=== PATIENT | female | born 1980 | race Two or more races ===

== ENCOUNTER 2020-07-25 11:47 | Emergency (ER) | payer MEDICAID, SELFPAY ==
--- NOTE | 2020-07-25 | ECG_ITS ---
Test Reason : LEFT ARM PAIN Blood Pressure : / mmHG Vent. Rate : 074 BPM Atrial Rate : 074 BPM P-R Int : 126 ms QRS Dur : 080 ms QT Int : 386 ms P-R-T Axes : 063 029 021 degrees QTc Int : 428 ms Normal sinus rhythm with sinus arrhythmia Normal ECG When compared with ECG of 18-OCT-2016 02:14, Vent. rate has decreased BY 45 BPM Referred By: Generic ED Physician Electronically Signed By:HALIMA SWAIN
--- NOTE | ~2020-07-25 | XR_ITS ---
EXAMINATION: XR CHEST CLINICAL INFORMATION: Chest pain and left arm pain COMPARISON: Previous chest x-ray April 2013 TECHNIQUE: 2 views of the chest were obtained. FINDINGS: No significant abnormality is noted involving the heart, lungs, mediastinum, bony thorax or soft tissues. XR/XR chest 2V IMPRESSION: Unremarkable examination.
[2020-07-25 11:57] VITALS: BP 191/92; RESP 16; TEMP 36.3; O2SAT 100; BMI 23.8
[2020-07-25 13:07] VITALS: BP 157/92; PULSE 72; RESP 16; TEMP 36.9; O2SAT 100
--- NOTE | 2020-07-25 13:23 | PC.NURSE ---
patient a&ox3, c/o headache at this time- denies lt arm pain/chest pain, denies n/v, vitals stable, will continue to monitor.
--- NOTE | 2020-07-25 14:03 | PC.NURSE ---
iv inserted, labs drawn, ekg performed, vss, will continue to monitor.
[2020-07-25 14:05] LABS: MANUAL DIFF FLAG NO
[2020-07-25 14:09] LABS: Basophils Absolute Auto 0.1 X10*3/uL (0.0-0.2); Basophils Percent Auto 0.6 % (0-2); Eosinophils Absolute Auto 0.2 X10*3/uL (0.0-0.4); Eosinophils Percent Auto 1.8 % (0-4); Hematocrit 40.4 % (37-47); Hemoglobin 13.5 g/dl (12.0-16.0); Imm Gran Abs Auto 0.03 X10*3/uL (0.00-0.03); Imm Gran Pct Auto 0.3 % (0.0-0.4); Lymphocytes Absolute Auto 1.4 X10*3/uL (1.2-4.9); Mean Corpuscular HGB Conc 33.4 g/dl (31.0-35.0); Mean Corpuscular Hemoglobin 29.2 pg (27.0-33.0); Mean Corpuscular Volume 87.3 fL (80-98); Mean Platelet Volume 9.7 fL (9.4-12.3); Monocytes Absolute Auto 0.6 X10*3/uL (0.1-1.2); Neutrophils Absolute Auto 6.5 X10*3/uL (2.0-8.3); Neutrophils Percent Auto 74.3 % (45-73); Platelet Count 302 X10*3/uL (160-400); Red Blood Count 4.63 X10*6/uL (4.20-5.50); Red Cell Distribution Width 12.2 % (11.0-16.0); White Blood Count 8.7 X10*3/uL (4.8-10.8)
[2020-07-25 14:31] LABS: Anion Gap 12 (12-20); Blood Urea Nitrogen 11 mg/dL (9-16); Calcium 8.7 mg/dL (8.4-10.2); Carbon Dioxide 26 mmol/L (22-29); Chloride 104 mmol/L (96-108); Creatinine Clr Calc Pharmacy 78.8; Estimated Glomerular Filt Rate > 60; Glucose Random 90 mg/dL (60-115); Sodium 138 mmol/L (135-145)
[2020-07-25 14:38] LABS: Troponin-I High Sensitivity < 3.5 ng/L (<3.5-17.0)
--- NOTE | 2020-07-25 15:21 | ED.GENADULT ---
HPI - General Adult General Chief complaint: General Medical Stated complaint: high blood pressure Time Seen by Provider: 07/25/20 13:58 Source: patient Mode of arrival: ambulatory Limitations: language barrier (German-speaking) History of Present Illness HPI narrative: 40-year-old female with a past medical history of anxiety presenting to the ED with complaints of elevated blood pressure over the past few months with associated intermittent chest pain and left arm pain although reports she does not have the chest pain or left arm pain at this time although is concerned due to her blood pressure being elevated anywhere from 140s through 190s for systolic blood pressure. She reports in May when she was at [facility] for her daughter she had them take her blood pressure due to she was having the left arm pain and the chest pain and they instructed her to come to the emergency department although she refused and has been ignoring it. Denies any dizziness, changes in vision, jaw pain, nausea/vomiting, palpitations, dyspnea on exertion, orthopnea, shortness of breath, back pain, symptoms or any other symptoms complaints or concerns at this time. MD complaint: Elevated BP with left arm pain and chest pain Related Data Allergies Allergy/AdvReac Type Severity Reaction Status Date / Time No Known Allergies Allergy Unverified 03/01/20 17:34 Review of Systems Review of Systems: Constitutional : No Weight loss, No Fever, No Chills, No Night Sweats, No Fatigue, No Malaise ENT/Mouth : No Hearing loss, No Ear Pain, No Nasal Congestion, No Sinus Pain, No Hoarseness, No sore throat, No Rhinorrhea, No Swallowing Difficulty Eyes: No Eye Pain, No Swelling, No Redness, No Foreign Body, No Discharge, No Vision Changes Cardiovascular : + Resolved Chest Pain, No SOB, no Dyspnea on Exertion, No Orthopnea, No edema, No extremity swelling, No Palpitations Respiratory : No Cough, No Sputum, No Wheezing, No Dyspnea Gastrointestinal : No Nausea, No Vomiting, No Diarrhea, No abdominal Pain, No Hematochezia, No Melena Genitourinary : No irregular bleeding, No Dysuria, No Urinary Frequency, No Hematuria, No Urinary Incontinence, No Urgency, No Flank Pain, No Urinary Flow Changes, No Hesitancy Musculoskeletal : + resolved left arm pain, No joint pain, No Myalgias, No Joint Swelling Skin : No Skin Lesions, No rash Neuro : No Weakness, No Numbness, No Paresthesias, No Loss of Consciousness, No Dizziness, No Headache Psych : No Anxiety/Panic, No Depression, No SI/HI/AH/VH Heme/Lymph: No Bruising, No Bleeding,No Lymphadenopathy Endocrine : No Polyuria, No Polydipsia, No Temperature Intolerance Yes all other systems are reviewed and are negative [facility] Past Medical History Attestation statement: The following information was validated with the patient. Medical History (Updated 07/25/20 @ 15:31 by NATALIE Forbes) Anxiety Social History Social History Alcohol intake: current Alcohol intake frequency: holidays/special occasions only Smoked in Last 30 Days: No Use of substances other than those prescribed or required for medical reasons: No Advance Directives: Yes Advance Directives Information Provided: Yes Advance Directives on File: No Physical Exam Vital Signs: Vital Signs: Last Vital Signs Temp 98.5 F 07/25/20 13:07 Pulse 72 07/25/20 13:07 Resp 16 07/25/20 13:07 BP 157/92 H 07/25/20 13:07 Pulse Ox 100 07/25/20 13:07 Body Mass Index 23.8 vital signs have been reviewed as normal and appeared to be correct. Blood pressure normal. Heart rate normal. Respiration rate normal. Temperature normal. Oxygen saturation normal. Appearance: Alert. Oriented X3. No acute distress. Head: Normal external exam. Normocephalic. Atraumatic. No Aguilar signs noted. No raccoon eyes noted Eyes: PERRLA. EOMI. Conjunctiva and sclera normal. Eyelids normal. ENT: EAC normal. TM's Normal. Pharynx normal. Uvula midline. Moist mucous membranes. No trismus noted. No drooling noted. No muffled voice noted. Neck: Normal inspection. Neck supple. FROM. No adenopathy. Thyroid Normal. No meningeal signs. No neck mass noted. CVS: Normal heart rate and rhythm. Heart sound normal. No murmurs noted. Pulses normal throughout. Respiratory: No respiratory distress. Painless inspiration. Breath sounds normal. No wheezes/rales/rhonchi noted. Chest nontender. No accessory muscle usage noted or decreased air movement noted. Abdomen: Soft and nontender. Bowel sounds normal in all 4 quadrants. No distention noted. No organomegaly noted. No visible injury noted. Back: No CVA tenderness. Full range of motion noted. Skin: Skin warm and dry. Normal skin color. Normal skin turgor. No rashes/lesions/lacerations noted. Extremities: No lower extremity edema. Extremities exhibit normal range of motion. Extremities nontender. Neuro: Oriented X 3. No motor deficit. No sensory deficit. Reflexes normal. Course Course Course Narrative: 40-year-old with a past medical history of anxiety presenting to the ED with elevated blood pressure for the past few months and intermittent left arm pain and chest pain which is not present today. Denies any other symptoms complaints or concerns at this time. - on exam patient is alert and oriented x3. Not in any acute distress. Initially the patient's blood pressure was 191/92 although once she was able to calm down her blood pressure is now at 157/92. Otherwise she is noted to be tachycardic at 125 and 113 and all other vitals are within normal limits. - concern for ACS vs hypertension - labs obtained and all within normal limits including troponin. - EKG is normal sinus rhythm with sinus arrhythmia normal MI/QRS/QTC/QTC interval. No acute ischemic changes noted. Similar when compared to prior EKG 10/18/2016. - chest x-ray within normal limits. - will DC home with instructions to follow-up with her primary care provider for further evaluation treatment and recheck of the patient's blood pressure for possible starting hypertensive medications and instructions to return if any new or worsening symptoms. Patient understands agrees the plan. Medical Decision Making Medical Records Medical records reviewed: Yes I reviewed the patient's medical records. Lab Data Lab results reviewed: Yes I reviewed the patient's lab results. Result diagrams: 07/25/20 14:00 07/25/20 14:00 Labs: Lab Results 07/25/20 07/25/20 07/25/20 Range/Units 14:00 14:00 14:00 WBC 8.7 (4.8-10.8) X10*3/uL RBC 4.63 (4.20-5.50) X10*6/uL Hgb 13.5 (12.0-16.0) g/dl Hct 40.4 (37-47) % MCV 87.3 (80-98) fL MCH 29.2 (27.0-33.0) pg MCHC 33.4 (31.0-35.0) g/dl RDW 12.2 (11.0-16.0) % Plt Count 302 (160-400) X10*3/uL MPV 9.7 (9.4-12.3) fL Immature Gran % (Auto) 0.3 (0.0-0.4) % Neut % (Auto) 74.3 H (45-73) % Lymph % (Auto) 16.0 L (20-40) % [place] % (Auto) 7.0 (2-11) % Eos % (Auto) 1.8 (0-4) % Baso % (Auto) 0.6 (0-2) % Lymph # (Auto) 1.4 (1.2-4.9) X10*3/uL [place] # (Auto) 0.6 (0.1-1.2) X10*3/uL Eos # (Auto) 0.2 (0.0-0.4) X10*3/uL Baso # (Auto) 0.1 (0.0-0.2) X10*3/uL Abs Immat Gran (auto) 0.03 (0.00-0.03) X10*3/uL Absolute Neuts (auto) 6.5 (2.0-8.3) X10*3/uL Absolute Nucleated RBC 0.000 (0.0-0.012) X10*3/uL Nucleated RBC % (auto) 0.0 (0.0-0.2) /100WBC Hold Blue Top SEE NOTE Sodium 138 (135-145) mmol/L Potassium 4.0 (3.3-5.1) mmol/L Chloride 104 (96-108) mmol/L Carbon Dioxide 26 (22-29) mmol/L Anion Gap 12 (12-20) BUN 11 (9-16) mg/dL Creatinine 0.75 (0.5-1.4) mg/dL Estim Creat Clear Calc 78.8 Estimated GFR > 60 Random Glucose 90 (60-115) mg/dL Calcium 8.7 (8.4-10.2) mg/dL Troponin I High Sens (<3.5-17.0) ng/L 07/25/20 Range/Units 14:00 WBC (4.8-10.8) X10*3/uL RBC (4.20-5.50) X10*6/uL Hgb (12.0-16.0) g/dl Hct (37-47) % MCV (80-98) fL MCH (27.0-33.0) pg MCHC (31.0-35.0) g/dl RDW (11.0-16.0) % Plt Count (160-400) X10*3/uL MPV (9.4-12.3) fL Immature Gran % (Auto) (0.0-0.4) % Neut % (Auto) (45-73) % Lymph % (Auto) (20-40) % [place] % (Auto) (2-11) % Eos % (Auto) (0-4) % Baso % (Auto) (0-2) % Lymph # (Auto) (1.2-4.9) X10*3/uL [place] # (Auto) (0.1-1.2) X10*3/uL Eos # (Auto) (0.0-0.4) X10*3/uL Baso # (Auto) (0.0-0.2) X10*3/uL Abs Immat Gran (auto) (0.00-0.03) X10*3/uL Absolute Neuts (auto) (2.0-8.3) X10*3/uL Absolute Nucleated RBC (0.0-0.012) X10*3/uL Nucleated RBC % (auto) (0.0-0.2) /100WBC Hold Blue Top Sodium (135-145) mmol/L Potassium (3.3-5.1) mmol/L Chloride (96-108) mmol/L Carbon Dioxide (22-29) mmol/L Anion Gap (12-20) BUN (9-16) mg/dL Creatinine (0.5-1.4) mg/dL Estim Creat Clear Calc Estimated GFR Random Glucose (60-115) mg/dL Calcium (8.4-10.2) mg/dL Troponin I High Sens < 3.5 (<3.5-17.0) ng/L Imaging Data Chest x-ray: Attestation: I personally reviewed and interpreted this imaging study as follows: Radiologist's impression: FINDINGS: No significant abnormality is noted involving the heart, lungs, mediastinum, bony thorax or soft tissues. XR/XR chest 2V IMPRESSION: Unremarkable examination. ECG Data Attestation: I personally reviewed and interpreted this ECG as follows: Interpretation: EKG is normal sinus rhythm with sinus arrhythmia normal MI/QRS/QTC/QTC interval. No acute ischemic changes noted. Similar when compared to prior EKG 10/18/2016. Scores Heart Score History: -0- slightly suspicious ECG: -0- normal Age: -0- < or = 45 Risk factory: -0- no risk factors known Troponin: -0- < or = normal limit Score: 0 Risk: 1.7% Discharge Plan Discharge Clinical Impression: Hypertension Qualifiers: Hypertension type: unspecified Qualified Code(s): I10 - Essential (primary) hypertension Patient Disposition: Home, Self-Care Instructions: Hypertension (ED) Referrals: Guilherme Thomas MD [Primary Care Provider] - 2 days (Call tomorrow to make a follow-up appointment this week. Llame ma?chad para hacer jordan jay de seguimiento esta semana) Print Language: German
[2020-07-25 16:06] VITALS: BP 164/92; PULSE 66; RESP 14; TEMP 36.9; O2SAT 100
== END 2020-07-25 16:07 | disposition home or self-care (01) ==
PROVIDERS: Emergency Provider Emergency Medicine Emergency Medical Services; PCP Internal Medicine
DX: I10 Essential (primary) hypertension (principal); R07.9 Chest pain, unspecified; F41.9 Anxiety disorder, unspecified
CPT/HCPCS: 36415; 71046; 80048; 84484; 85025; 93005; 99283; 99284

== ENCOUNTER 2021-05-03 09:09 | Outpatient (REF) | payer MEDICAID, SELFPAY ==
--- NOTE | ~2021-05-03 | CT_ITS ---
EXAMINATION: CT ABDOMEN AND PELVIS WITHOUT AND WITH CONTRAST CLINICAL INFORMATION: Microscopic hematuria COMPARISON: None. TECHNIQUE: Noncontrast CT of the abdomen and pelvis is performed followed by split bolus contrast-enhanced images using 85 mL Omnipaque 350 contrast.? Postcontrast imaging is performed during the combined nephrogram and excretion phase. Sagittal and coronal reformatted images were obtained on the technologist's workstation for both the precontrast and postcontrast phases. This CT examination was performed using dose optimization techniques as appropriate, variously including the following: *Automated exposure control *Adjustment of mA and/or kV according to patient size (this includes techniques or standardized protocols for targeted exams where dose is matched to indication/reason for exam; i.e. extremities or head) *Use of iterative reconstruction technique DLP: mGy-cm FINDINGS: LUNG BASES: The visualized lung bases are unremarkable. LIVER, GALLBLADDER, AND BILIARY TREE: The liver is normal in size, shape, and attenuation. No focal hepatic lesion or biliary ductal dilatation is present. The gallbladder is unremarkable with no evidence of radiopaque gallstones, gallbladder wall thickening, or obvious pericholecystic inflammatory changes. PANCREAS: Unremarkable. SPLEEN: Unremarkable. ADRENAL GLANDS: Unremarkable. KIDNEYS AND URETERS: The kidneys are normal in size, shape, and attenuation. No hydronephrosis, hydroureter, or calculi seen. There is a small 1 cm low-attenuation lesion in the lower pole the left kidney consistent with a cyst. No imaging follow-up needed. The collecting systems are normal. The ureters are normal BLADDER: Unremarkable. GASTROINTESTINAL TRACT: The small and large bowel are unremarkable. The appendix is unremarkable. ABDOMINAL WALL: There is a small umbilical hernia containing fat. LYMPH NODES: Normal. VASCULAR: Unremarkable. PELVIC VISCERA: Unremarkable. OSSEUS STRUCTURES: Unremarkable. CT/CT urogram IMPRESSION: Small left renal cyst. Otherwise unremarkable exam. No cause of hematuria seen.
[2021-05-03] MEDS: iohexoL 350 MG/ML 100 ML INFUS..BTL IV (10:51)
== END 2021-05-03 09:10 | disposition home or self-care (01) ==
LOC: HO.CT 09:09
PROVIDERS: PCP Internal Medicine; Visit Provider Internal Medicine
DX: R31.21 Asymptomatic microscopic hematuria (principal)
CPT/HCPCS: 74178; Q9967

== ENCOUNTER 2021-11-24 12:00 | Emergency (ER) | payer MEDICAID, SELFPAY ==
[2021-11-24 12:20] VITALS: BP 138/79; PULSE 75; RESP 16; TEMP 36.7; O2SAT 97; BMI 25.6
--- NOTE | 2021-11-24 12:40 | ED.GENADULT ---
HPI - General Adult General Chief complaint: Extremity Injury, Lower Stated complaint: leg pain Time Seen by Provider: 11/24/21 12:40 Source: patient and spanish interpreter Mode of arrival: ambulatory Limitations: language barrier History of Present Illness HPI narrative: Patient is a 41 year old female presenting to the emergency department today with left foot pain. Patient states that starting yesterday, she began to have pain in the bottom part of her left foot. Patient states that she did not step on anything and the pain is when she takes steps. Patient denies any dizziness, lightheadedness, abdominal pain, nausea, vomiting, fever, chills, blurry vision, double vision, loss of vision, chest pain, difficulty breathing, shortness of breath, back pain, night sweats, pain with urination, increased urinary frequency, increased urinary urgency, blood in her urine or stool, syncope or a near syncopal episode, recent trauma or falls, bowel incontinence, bladder incontinence, bowel retention, bladder retention, or any other complaints at this time. Onset (ago): day(s) Location: left and lower extremity Radiation: non-radiation Severity: mild Severity scale (1-10): 2 Quality: dull Pain Consistency: intermittent Relieving factors: none Exacerbating factors: movement Associated symptoms: denies other symptoms Treatments prior to arrival: none Related Data Allergies Allergy/AdvReac Type Severity Reaction Status Date / Time No Known Allergies Allergy Unverified 03/01/20 17:34 Review of Systems Constitutional: Constitutional: Reports no additional constitutional complaints, Denies chills, Denies fever(s) and Denies night sweats Eyes: Eyes: Reports no additional eye complaints, Denies blurry vision, Denies change in vision, Denies diplopia, Denies eye discharge, Denies loss of vision and Denies eye pain ENT: Denies dizziness Cardiovascular: Cardiovascular: Reports no additional cardiovascular complaints, Denies chest pain, Denies lightheadedness, Denies Loss of Consciousness and Denies dyspnea Respiratory: Respiratory: Reports no additional respiratory complaints and Denies dyspnea Gastrointestinal: Gastrointestinal: Reports no additional gastrointestinal complaints, Denies abdominal pain, Denies melena, Denies hematochezia, Denies change in bowel habits and Denies change in stool character Genitourinary: Genitourinary: Denies hematuria, Denies urinary frequency, Denies dysuria, Denies urinary incontinence, Denies urinary hesitancy and Denies urinary urgency Musculoskeletal: Musculoskeletal: Reports no additional musculoskeletal complaints, Denies numbness and Denies tingling Comments: left foot pain Neurologic: Denies dizziness, Denies loss of vision, Denies numbness and Denies tingling Psychiatric: Psychiatric: Reports no additional psychiatric complaints Endocrine: Endocrine: Reports no additional endocrine complaints Hematologic/Lymphatic: Hematologic/Lymphatic: Reports no additional hematologic/lymphatic complaints Allergic/Immunologic: Allergic/Immunologic: Reports no additional allergic/immunologic complaints [facility] Past Medical History Attestation statement: The following information was validated with the patient. Source: old records reviewed Medical History Anxiety Social History Social History Alcohol intake: current Alcohol intake frequency: holidays/special occasions only Advance Directives: No Advance Directives Information Provided: No Physical Exam ED Vital Signs: Vital Signs - 24 hr 11/24/21 12:20 Temperature 98.0 F Pulse Rate 75 Respiratory Rate 16 Blood Pressure 138/79 Pulse Oximetry 97 Oxygen Delivery Method Room Air BMI result Body Mass Index 25.6 Const General: cooperative, no acute distress, alert and awake Nutritional Appearance: well nourished Orientation/consciousness: patient oriented x3 Limitations: no limitations HENMT Head: Yes normal to inspection and Yes atraumatic Ears: hearing grossly normal bilaterally and external ears normal General nose exam: Normal external nose present, no nasal discharge noted and no epistaxis Face and sinus: Yes normal facial exam, No abrasion and No laceration Mouth: Normal oral and palatal mucosa present, no drooling and no muffled voice Eyes General: appearance normal, both eyes and all related structures Periorbital: periorbital findings normal Eyelids: Yes eyelids normal Conjunctivae: conjunctivae normal Pupils: Equal, round and reactive pupils present EOM: EOMs intact bilaterally Neck Neck: Yes normal visual inspection, Yes full ROM and Yes no lymphadenopathy Chest Chest palpation & inspection: normal inspection of the chest Resp Effort & Inspection: normal respiratory effort and able to speak in complete sentences Auscultation: clear to auscultation bilaterally Cardio Rate: regular rate Rhythm: regular rhythm GI Inspection: Yes normal to inspection Neuro General: patient oriented x3 and moves all extremities Cranial nerves: Yes Equal, round and reactive pupils present Cognition (Neuro): normal cognition Motor exam (neuro): 5/5 motor strength present throughout Sensory Exam: Normal double simultaneous stimulation for sensation Coordination: [id number] test normal Extrem General: Yes normal to inspection, Yes full ROM and Yes capillary refill normal Psych Appearance: grossly normal Mental Status: mental status grossly normal Affect: normal affect Attitude: cooperative Thought process: Normal thought process present Thought content: Normal thought content present Insight: Good insight present (Psych) Medical Decision Making MDM Narrative Medical decision making narrative: Patient is a 41 year old female presenting to the emergency department today with left foot pain. Patient's physical exam was unremarkable. I explained my physical exam findings to the patient. I answered all questions asked by the patient. Patient received IM Toradol which she stated helped her pain significantly. I stressed the importance of the patient taking her medication as prescribed. I stressed the importance of the patient following up with her primary care provider and an orthopedic provider. I stressed the importance of the patient returning to the emergency department immediately if her symptoms were to worsen or if she were to develop any dizziness, shortness of breath, difficulty breathing, chest pain, blurry vision, loss of vision, nausea, vomiting, abdominal pain, fever, chills, back pain, or any other complaints. Patient verbalized agreement and understanding with this treatment plan and discharge. Differential Diagnosis Differential Diagnosis: plantar fasciitis, foot pain Medical Records Medical records reviewed: Yes I reviewed the patient's medical records. 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 Return to the emergency department immediately if your symptoms worsen or if you develop any dizziness, shortness of breath, difficulty breathing, chest pain, blurry vision, loss of vision, nausea, vomiting, abdominal pain, fever, chills, back pain, or any other complaints. Referrals: [facility] [Provider Group] Carter Elliott DPM [Physician] - Guilherme Thomas MD [Primary Care Provider] - Interventions: ED Discharge Assessment Last Done: 11/24/21 13:08 Discharge Date/Time: 11/24/21 13:09 Print Language: Kinyarwanda
[2021-11-24] MEDS: Ketorolac Tromethamine 30 MG/ML VIAL IM (13:05)
== END 2021-11-24 13:09 | disposition home or self-care (01) ==
PROVIDERS: Emergency Provider Emergency Medicine; PCP Internal Medicine
DX: M72.2 Plantar fascial fibromatosis (principal)
CPT/HCPCS: 96372; 99283; 99284; J1885

== ENCOUNTER 2022-11-18 12:27 | Outpatient (REF) | payer OTHER, SELFPAY ==
--- NOTE | ~2022-11-18 | US_ITS ---
EXAMINATION: US THYROID CLINICAL INFORMATION: Mass and lump, neck goiter. COMPARISON: None available. TECHNIQUE: Linear transducer grayscale and color Doppler examination with attention to the region of the thyroid. FINDINGS: SIZE: Measurements of the thyroid lobes and nodules are given in sagittal, anteroposterior and transverse dimensions respectively. Right Thyroid Lobe: 3.3 x 2.1 x 1.3 cm, volume 4.7 mL. Parenchyma: The gland echotexture is heterogeneous. Thyroid vascularity is increased. Left Thyroid Lobe: 3.5 x 1.9 x 1.8 cm, volume 6.3 mL. Parenchyma: The gland echotexture is heterogeneous. Thyroid vascularity is increased. Isthmus: 0.1 cm in maximum AP dimension. No focal thyroid nodule is seen. NODES: No lymphadenopathy is seen in the tissue surrounding the thyroid gland. US/US thyroid IMPRESSION: 1. There is heterogeneous thyroid echotexture, which can be associated with thyroiditis. 2. No thyroid nodule, goiter or increase in vascularity is seen. ACR TI-RADS RECOMMENDATION REFERENCE: Ultrasound-guided fine-needle aspiration, followup ultrasound, no further follow up. * TR1 (0 point) and TR2 (2 points): No FNA or follow up. * TR3 (3 points): FNA if more than or equal to 2.5 cm in maximum dimension, followup ultrasound in 1, 3 and 5 years if 1.5 to 2.4 cm in maximum dimension. * TR4 (4-6 points): FNA if more than or equal to 1.5 cm in maximum dimension, followup ultrasound in 1, 2, 3 and 5 years if 1 to 1.4 cm in maximum dimension. * TR5 (more than or equal to 7 points): FNA if more than or equal to 1 cm in maximum dimension, followup ultrasound every year for 5 years if 0.5 to 0.9 cm in maximum dimension. * TR3, TR4 or TR5 nodules that are below the size threshold for followup receive no follow up.
== END 2022-11-18 12:28 | disposition home or self-care (01) ==
LOC: HO.US 12:27
PROVIDERS: PCP Internal Medicine; Visit Provider Internal Medicine Geriatric Medicine
DX: E04.9 Nontoxic goiter, unspecified (principal)
CPT/HCPCS: 76536

== ENCOUNTER 2023-01-16 14:53 | Outpatient (REF) | payer MEDICAID, SELFPAY ==
--- NOTE | ~2023-01-16 | MM_ITS ---
EXAMINATION: MM SCREENING DIGITAL BREAST TOMOSYNTHESIS, BILATERAL CLINICAL INFORMATION: Screening. Asymptomatic. The lifetime risk of breast cancer based on the Tyrer-Cuzick Model is 7.1%. COMPARISON: Mammography: This study is compared with prior exams dating back to 2019. TECHNIQUE: Digital breast tomosynthesis is performed in both the craniocaudal and mediolateral oblique views along with computer-aided detection (CAD). Synthesized 2D images are generated from the tomosynthesis. FINDINGS: The breasts are heterogeneously dense, which may obscure small masses (ACR BI-RADS breast composition Category c). There are no significant masses, abnormal calcifications, or other abnormalities. MM/MM tomosynthesis screening BI IMPRESSION: No mammographic evidence of malignancy. ASSESSMENT: BI-RADS BI-RADS 1 - Negative RECOMMENDATION: Routine annual mammography screening. 1 year F/U This examination should not preclude the clinical evaluation of a suspicious palpable abnormality. This patient's information was entered into a reminder system with a target due date for their next mammogram.
== END 2023-01-16 14:54 | disposition home or self-care (01) ==
LOC: HO.MAMMO 14:53
PROVIDERS: PCP Internal Medicine Geriatric Medicine; Visit Provider Internal Medicine
DX: Z12.31 Encounter for screening mammogram for malignant neoplasm of breast (principal)
CPT/HCPCS: 77063; 77067

== ENCOUNTER → 2023-01-16 15:15 | Outpatient (BNV) | payer MEDICAID, SELFPAY | PROVIDERS: PCP Internal Medicine Geriatric Medicine; Visit Provider Radiology Diagnostic Radiology | DX: Z12.31 Encounter for screening mammogram for malignant neoplasm of breast (principal) | CPT/HCPCS: 77063; 77067 ==

== ENCOUNTER 2023-02-27 16:18 | Emergency (ER) | payer OTHER, SELFPAY ==
[2023-02-27 16:50] VITALS: BP 172/95; PULSE 68; RESP 16; TEMP 36.5; O2SAT 98; BMI 25.0
--- NOTE | 2023-02-27 16:52 | ED_ITS ---
HPI - General Adult General Chief complaint: Urogenital-Female Stated complaint: blood in urine Time Seen by Provider: 02/27/23 21:28 Source: patient Mode of arrival: ambulatory Limitations: no limitations History of Present Illness HPI narrative: Patient complaining of no fever no chills no nausea no vomiting no back pain blood in the urine with dysuria and frequency started earlier today blood pressure slightly elevated when she arrived as she missed her medication today but she took in the triage Related Data Previous Rx's Medication Instructions Recorded cefuroxime axetil 250 mg tablet 250 mg PO BID 7 days #14 tabs 02/27/23 phenazopyridine 200 mg tablet 200 mg PO TID 2 days #6 tabs 02/27/23 (Pyridium) Allergies Allergy/AdvReac Type Severity Reaction Status Date / Time No Known Allergies Allergy Unverified 03/01/20 17:34 Review of Systems 2 Review of Systems: Yes all other systems are reviewed and are negative [facility] Past Medical History Medical History Anxiety Social History Social History Alcohol intake: current Alcohol intake frequency: holidays/special occasions only Advance Directives: No Advance Directives Information Provided: No Physical Exam ED Vital Signs: Vital Signs - 24 hr 02/27/23 16:50 02/27/23 20:34 Temperature 97.7 F 98 F Pulse Rate 68 68 Respiratory Rate 16 18 Blood Pressure 172/95 H 168/88 H Pulse Oximetry 98 98 Oxygen Delivery Method Room Air Room Air BMI result Body Mass Index 25.0 Appearance: Alert. Oriented X3. No acute distress. Eyes: PERRLA, No Nystagmus ENT: Pharynx normal. Oral Mucosa moist Neck: Normal inspection. Neck supple. CVS: Normal heart rate and rhythm. Pulses normal. Respiratory: No respiratory distress. Equal air entry bilateral, no wheezing/rales/rhonchi Abdomen: Soft and nontender. Bowel sounds are present, no mass palpable, no CVA tenderness Skin: Skin warm and dry. Normal skin color. Normal skin turgor. Extremities: No lower extremity edema. No calf tenderness Neuro: Oriented X 3. No motor deficit. Course Course Course Narrative: This is a rapid medical exam: Additional HPI, ROS, PE not included below will be deferred to primary provider. Patient is a 42-year-old female presenting to the emergency department with complaint of several episodes of hematuria today as well as dysuria. Denies back or flank pain, denies abdominal pain. Denies fevers. BP elevated in triage, reports history of HTN and states she did not take her medication today. Denies headache or vision changes. Plan: UA, labs Medications Administered Discontinued Medications Generic Name Dose Route Start Last Admin Trade Name Patricia PRN Reason Stop Dose Admin Cefuroxime Axetil 250 mg 02/27/23 21:32 02/27/23 22:09 Cefuroxime Axetil 250 Mg Tablet PO 02/27/23 21:33 250 mg ONCE ONE Administration Phenazopyridine HCl 200 mg 02/27/23 22:02 02/27/23 22:09 Phenazopyridine Hcl 200 Mg Tablet PO 02/27/23 22:03 200 mg ONCE ONE Administration Medical Decision Making Medical Decision Making [facility] Narrative: Patient with uncomplicated UTI/cystitis discharge patient home on Ceftin Differential Diagnosis Differential Diagnoses: The differential diagnosis associated with the presentation includes Kidney stone/cystitis/UTI Lab Data [facility] Lab Attestation statement: I reviewed the patient's lab results. 02/27/23 18:54 02/27/23 18:54 Labs: Lab Results 02/27/23 Range/Units 18:54 WBC 10.0 (4.8-10.8) X10*3/uL RBC 4.49 (4.20-5.50) X10*6/uL Hgb 13.0 (12.0-16.0) g/dl Hct 39.1 (37.0-47.0) % MCV 87.1 (80.0-98.0) fL MCH 29.0 (27.0-33.0) pg MCHC 33.2 (31.0-35.0) g/dl RDW 12.6 (11.0-16.0) % Plt Count 287 (160-400) X10*3/uL MPV 9.3 L (9.4-12.3) fL Immature Gran % (Auto) 0.4 (0.0-0.4) % Neut % (Auto) 70.3 (45-73) % Lymph % (Auto) 19.9 L (20-40) % [place] % (Auto) 7.6 (2-11) % Eos % (Auto) 1.4 (0-4) % Baso % (Auto) 0.4 (0-2) % Lymph # (Auto) 2.0 (1.2-4.9) X10*3/uL [place] # (Auto) 0.8 (0.1-1.2) X10*3/uL Eos # (Auto) 0.1 (0.0-0.4) X10*3/uL Baso # (Auto) 0.0 (0.0-0.2) X10*3/uL Abs Immat Gran (auto) 0.04 H (0.00-0.03) X10*3/uL Absolute Neuts (auto) 7.0 (2.0-8.3) x10*3/uL Absolute Nucleated RBC 0.000 (0.0-0.012) X10*3/uL Nucleated RBC % (auto) 0.0 (0.0-0.2) /100WBC Sodium 139 (135-145) mmol/L Potassium 3.5 (3.3-5.1) mmol/L Chloride 104 (96-108) mmol/L Carbon Dioxide 28 (22-29) mmol/L Anion Gap 11 L (12-20) BUN 10 (9-16) mg/dL Creatinine 0.75 (0.5-1.4) mg/dL Estim Creat Clear Calc 84.7 Estimated GFR > 60 Random Glucose 88 (60-115) mg/dL Calcium 9.1 (8.4-10.2) mg/dL Total Bilirubin 0.3 (0.0-1.0) mg/dL AST 14 (5-31) U/L ALT 12 (0-31) U/L Alkaline Phosphatase 54 (39-117) U/L Total Protein 7.4 (6.5-8.0) g/dL Albumin 4.3 (3.5-5.0) g/dL Beta HCG, Quant < 2 mIU/mL Urine Color Yellow Urine Appearance Clear Urine pH 6.5 (5.0-9.0) Ur Specific [place] <= 1.005 (1.005-1.025) Urine Protein Negative (Neg-Trace) mg/dL Urine Glucose (UA) Negative (Negative) mg/dL Urine Ketones Negative (Negative) mg/dL Urine Blood Moderate (2+) H (Negative) Urine Nitrite Negative (Negative) Ur Leukocyte Esterase Large (3+) H (Negative) Urine RBC >20 H (0-2) /HPF Urine WBC >50 H (0-5) /HPF Ur Squamous Epith Cells 0-2 (0-2) /HPF Urine Bacteria Trace (None Seen) Hyaline Casts 0-2 (0-2) /LPF Discharge Plan Discharge Clinical Impression: UTI (urinary tract infection) Patient Disposition: Home, Self-Care Instructions: Urinary Tract Infection in Women (ED) Additional Instructions: Drink Plenty of fluids Take antibiotic as prescribed Follow with PCP if not better Prescriptions: New cefuroxime axetil 250 mg tablet 250 mg PO BID 7 Days Qty: 14 0RF phenazopyridine [Pyridium] 200 mg tablet 200 mg PO TID 2 Days Qty: 6 0RF Interventions: ED Discharge Assessment Last Done: 02/27/23 22:11 Discharge Date/Time: 02/27/23 22:11
[2023-02-27 19:03] LABS: MANUAL DIFF FLAG NO
[2023-02-27 19:05] LABS: Basophils Percent Auto 0.4 % (0-2); Eosinophils Absolute Auto 0.1 X10*3/uL (0.0-0.4); Eosinophils Percent Auto 1.4 % (0-4); Hematocrit 39.1 % (37.0-47.0); Imm Gran Abs Auto 0.04 X10*3/uL (0.00-0.03); Imm Gran Pct Auto 0.4 % (0.0-0.4); Lymphocytes Percent Auto 19.9 % (20-40); Mean Corpuscular HGB Conc 33.2 g/dl (31.0-35.0); Mean Corpuscular Volume 87.1 fL (80.0-98.0); Mean Platelet Volume 9.3 fL (9.4-12.3); Monocytes Absolute Auto 0.8 X10*3/uL (0.1-1.2); Monocytes Percent Auto 7.6 % (2-11); Neutrophils Percent Auto 70.3 % (45-73); Platelet Count 287 X10*3/uL (160-400); Red Blood Count 4.49 X10*6/uL (4.20-5.50); Red Cell Distribution Width 12.6 % (11.0-16.0)
[2023-02-27 19:12] LABS: Appearance Urine Clear; Color Urine Yellow; Glucose Urine UA Negative (Negative); Leukocyte Esterase Urine Large (3+) (Negative); Nitrite Urine Negative (Negative); PH 6.5 (5.0-9.0); Specific Gravity - Urine <= 1.005 (1.005-1.025); UMIC TRIGGER UACC YES; Urine Blood Moderate (2+) (Negative); Urine Ketones Negative (Negative); Urine Protein Negative (Neg-Trace)
[2023-02-27 19:21] LABS: Bacteria Urine Trace (None Seen); Hyaline Casts Urine 0-2 /LPF (0-2); RBC Urine >20 /HPF (0-2); Squamous Epithelial Cell Urine 0-2 /HPF (0-2); UACC Culture Trigger YES; WBC Urine >50 /HPF (0-5)
[2023-02-27 19:26] LABS: Alanine Aminotransferase 12 U/L (0-31); Albumin Level 4.3 g/dL (3.5-5.0); Alkaline Phosphatase 54 U/L (39-117); Anion Gap 11 (12-20); Aspartate Amino Transferase 14 U/L (5-31); Bilirubin Total 0.3 mg/dL (0.0-1.0); Blood Urea Nitrogen 10 mg/dL (9-16); Calcium 9.1 mg/dL (8.4-10.2); Carbon Dioxide 28 mmol/L (22-29); Chloride 104 mmol/L (96-108); Creatinine Clr Calc Pharmacy 84.7; Estimated Glomerular Filt Rate > 60; Glucose Random 88 mg/dL (60-115); Potassium 3.5 mmol/L (3.3-5.1); Sodium 139 mmol/L (135-145); Total Protein 7.4 g/dL (6.5-8.0)
[2023-02-27 19:29] LABS: HCG Quantitative < 2 mIU/mL
[2023-02-27 20:34] VITALS: BP 168/88; PULSE 68; RESP 18; TEMP 36.6; O2SAT 98
[2023-02-27] MEDS: Phenazopyridine HCL 200 MG TABLET PO (22:09)
--- NOTE | 2023-02-27 22:10 | PC.NURSE ---
pt medicated per MAR.
== END 2023-02-27 22:11 | disposition home or self-care (01) ==
PROVIDERS: Registered Nurse Emergency; Emergency Provider Internal Medicine; PCP Internal Medicine
DX: N39.0 Urinary tract infection, site not specified (principal); B96.20 Unspecified Escherichia coli [E. coli] as the cause of diseases classified elsewhere; Z79.899 Other long term (current) drug therapy
CPT/HCPCS: 36415; 80053; 81001; 84702; 85025; 87086; 87088; 87186; 99283

== ENCOUNTER 2023-07-07 12:04 | Outpatient (REF) | payer MEDICAID, SELFPAY ==
[2023-07-07 15:08] LABS: Anion Gap 12 (12-20); Blood Urea Nitrogen 12 mg/dL (9-16); Calcium 9.2 mg/dL (8.4-10.2); Carbon Dioxide 29 mmol/L (22-29); Chloride 102 mmol/L (96-108); Estimated Glomerular Filt Rate > 60; Glucose Random 80 mg/dL (60-115); Sodium 139 mmol/L (135-145)
== END 2023-07-07 12:05 | disposition home or self-care (01) ==
LOC: HO.HHCL 12:04
PROVIDERS: Visit Provider Internal Medicine
DX: I10 Essential (primary) hypertension (principal); E04.9 Nontoxic goiter, unspecified
CPT/HCPCS: 36415; 80048; 84443

== ENCOUNTER 2023-11-15 00:41 | Emergency (ER) | payer MEDICAID, SELFPAY ==
[2023-11-15 00:45] VITALS: BP 133/70; PULSE 95; RESP 19; TEMP 36.1; O2SAT 97; BMI 25.6
--- OUTSIDE RECORDS SUMMARY | 2023-11-20 08:54 | XMS_ITS | Continuity of Care Document ---
Author Organization [facility] Address [address] [place] [address]- Care Team Providers Care Enterprise Software Developer Name Role Phone Not on Staff, PCP Primary Care Physician Unavail able Encounter [facility] Date(s): 03/15/21 - 04/28/21 [facility] [address] [place] [address]- Attending Physician: Nely Abdul MD Admitting Physician: Nely Abdul MD Referring Physician: William KAUR, Guilherme Dallas
--- OUTSIDE RECORDS SUMMARY | 2023-11-20 08:54 | XMS_ITS | Continuity of Care Document ---
Author Organization [facility] Address [address] [place] [address]- Care Team Providers Care Procurement Assistant Name Role Phone Not on Staff, PCP Primary Care Physician Unavail able Encounter [facility] Date(s): 03/29/21 - 04/28/21 [facility] [address] [place] [address]- Attending Physician: Valentine Trejo Admitting Physician: Valentine Trejo Referring Physician: Valentine Trejo
== END 2023-11-15 04:58 | disposition left against medical advice (07) ==
PROVIDERS: Emergency Provider Emergency Medicine
DX: R03.1 Nonspecific low blood-pressure reading (principal); Z53.21 Procedure and treatment not carried out due to patient leaving prior to being seen by health care provider
CPT/HCPCS: 99281

== ENCOUNTER 2023-11-23 11:21 | Outpatient (REF) | payer MEDICAID, SELFPAY ==
[2023-11-23 13:42] LABS: Anion Gap 14 (12-20); Blood Urea Nitrogen 9 mg/dL (9-16); Calcium 9.3 mg/dL (8.4-10.2); Carbon Dioxide 25 mmol/L (22-29); Chloride 104 mmol/L (96-108); Estimated Glomerular Filt Rate > 60; Glucose Fasting 93 mg/dL (60-99); Potassium 4.3 mmol/L (3.3-5.1); Sodium 139 mmol/L (135-145)
[2023-11-27 04:44] LABS: HPV mRNA E6/E7 rflx Not Detected (Not Detected)
[2023-11-28 10:54] LABS: C. trachomatis RNA TMA NOT DETECTED (NOT DETECTED); N. gonorrhoeae RNA TMA NOT DETECTED (NOT DETECTED)
[2023-11-28 12:28] LABS: Trichomonas (NAAT) NOT DETECTED (NOT DETECTED)
== END 2023-11-23 11:22 | disposition home or self-care (01) ==
LOC: HO.HHCL 11:21
PROVIDERS: Referring Provider Advanced Practice Midwife; Visit Provider Internal Medicine
DX: I10 Essential (primary) hypertension (principal); Z12.4 Encounter for screening for malignant neoplasm of cervix; Z11.3 Encounter for screening for infections with a predominantly sexual mode of transmission
CPT/HCPCS: 36415; 80048; 87491; 87591; 87624; 87661; 88142

== ENCOUNTER 2024-01-19 10:43 | Outpatient (REF) | payer MEDICAID, SELFPAY | END 2024-01-19 10:44 | disposition home or self-care (01) | LOC: HO.MAMMO 10:43 | PROVIDERS: PCP Internal Medicine; Visit Provider Internal Medicine | DX: Z12.31 Encounter for screening mammogram for malignant neoplasm of breast (principal) | CPT/HCPCS: 77063; 77067 ==

== ENCOUNTER → 2024-01-19 10:45 | Outpatient (BNV) | payer MEDICAID, SELFPAY | PROVIDERS: PCP Internal Medicine; Visit Provider Radiology Diagnostic Radiology | DX: Z12.31 Encounter for screening mammogram for malignant neoplasm of breast (principal) | CPT/HCPCS: 77063; 77067 ==

== ENCOUNTER 2024-01-22 12:50 | Outpatient (REF) | payer MEDICAID, SELFPAY ==
--- NOTE | ~2024-01-22 | US_ITS ---
EXAMINATION: US PELVIS CLINICAL INFORMATION: Pelvic pain. LMP 12/27/2023 COMPARISON: 11/11/2017 TECHNIQUE: Ultrasound of the pelvis is performed using both transabdominal and transvaginal transducers along with Doppler. Transvaginal imaging is performed due to inadequate visualization transabdominally. FINDINGS: Uterus: The uterus is anteverted. Uterine echotexture is heterogeneous. The uterus measures 8.4 x 3.8 x 5.1 cm. The endometrial stripe is multilayered and measures 8 mm in thickness. Adnexa: The right ovary measures 2.7 x 1.1 x 1.5 cm for a volume of 2.3 mL. The left ovary measures 2.5 x 1.2 x 1.5 cm for a volume of 2.4 mL. No free fluid in the pelvis. US/US pelvic and transvaginal IMPRESSION: Unremarkable pelvic ultrasound.
== END 2024-01-22 12:51 | disposition home or self-care (01) ==
LOC: HO.US 12:50
PROVIDERS: PCP Internal Medicine; Visit Provider Advanced Practice Midwife
DX: R10.2 Pelvic and perineal pain (principal)
CPT/HCPCS: 76830; 76856

== ENCOUNTER 2024-11-25 11:02 | Outpatient (REF) | payer MEDICAID, SELFPAY ==
[2024-11-25 13:02] LABS: MANUAL DIFF FLAG NO
[2024-11-25 13:21] LABS: Basophils Percent Auto 0.8 % (0-2); Eosinophils Absolute Auto 0.1 X10*3/uL (0.0-0.4); Eosinophils Percent Auto 2.1 % (0-4); Hematocrit 38.5 % (37.0-47.0); Imm Gran Abs Auto 0.04 X10*3/uL (0.00-0.03); Imm Gran Pct Auto 0.8 % (0.0-0.4); Lymphocytes Absolute Auto 1.7 X10*3/uL (1.2-4.9); Mean Corpuscular HGB Conc 33.8 g/dl (31.0-35.0); Mean Corpuscular Hemoglobin 29.7 pg (27.0-33.0); Mean Corpuscular Volume 88.1 fL (80.0-98.0); Mean Platelet Volume 9.9 fL (9.4-12.3); Monocytes Absolute Auto 0.5 X10*3/uL (0.1-1.2); Monocytes Percent Auto 10.4 % (2-11); Neutrophils Absolute Auto 2.7 x10*3/uL (2.0-8.3); Neutrophils Percent Auto 51.9 % (45-73); Platelet Count 290 X10*3/uL (160-400); Red Blood Count 4.37 X10*6/uL (4.20-5.50); Red Cell Distribution Width 13.1 % (11.0-16.0); White Blood Count 5.1 X10*3/uL (4.8-10.8)
[2024-11-25 13:48] LABS: Alanine Aminotransferase 21 U/L (0-31); Albumin Level 4.2 g/dL (3.5-5.0); Alkaline Phosphatase 50 U/L (39-117); Anion Gap 8 (12-20); Aspartate Amino Transferase 22 U/L (5-31); Bilirubin Total 0.3 mg/dL (0.0-1.0); Blood Urea Nitrogen 13 mg/dL (9-16); Calcium 8.9 mg/dL (8.4-10.2); Carbon Dioxide 29 mmol/L (22-29); Chloride 105 mmol/L (96-108); Estimated Glomerular Filt Rate > 60; Glucose Random 84 mg/dL (60-115); Potassium 4.3 mmol/L (3.3-5.1); Sodium 138 mmol/L (135-145); TSH reflex Free T4 1.07 uIU/mL (0.32-4.0); Vitamin D 25-OH Total 26.2 ng/mL (>30)
== END 2024-11-25 11:03 | disposition home or self-care (01) ==
LOC: HO.HHCL 11:02
PROVIDERS: Visit Provider Internal Medicine
DX: I10 Essential (primary) hypertension (principal)
CPT/HCPCS: 36415; 80053; 82306; 84443; 85025

== ENCOUNTER 2025-03-07 15:13 | Outpatient (REF) | payer MEDICAID, SELFPAY ==
--- OUTSIDE RECORDS SUMMARY | 2025-03-07 18:10 | XMS_ITS | Encounter Summary ---
Author Organization [employer] Address [address] [facility] [facility] [address] [place] [address] Care Team Providers Care Digital Artist Name Role Phone Guilherme Rahman MD Primary Care Provide r Reason for Visit * Reason Onset Date Comments MMR Titers 03/02/2025 I informed the p atient, that an order for MMR titers was sent to the [facility] lab. She stated that she will have them done this afternoon. There is a Family Rake Operator Medical Form, that needs to be completed. Encounter Details Date Type Department Care Team (Late st Contact Info) Description 03/02/2025 Telephone [facility] [address] [place] [address] Guilherme Rahman MD [address] [place], [place] [phone] MMR Titers (I informed the patient, that an order for MMR titers was sent to the [facility] lab. She stated that she will have them done this afternoon. There is a Family Rake Operator Medical Form, that needs to be completed.) Social History Tobacco Use Types Packs/Day Years Used Date Smoking Tobacco: Never Passive Smoke Exposure: Never Smokeless Tobacco: Never Alcohol Use Standard Drinks/Week Comments Not Currently 0 (1 standard drink = 0.6 oz pur e alcohol) Depression Answer Date Recorded Patient Health Questionnaire-9 Score 5 11/22/2024 Patient Health Questionnaire-9 Score 5 11/22/2024 Last PHQ-9: Questionnaire Data Not on file 0 11/22/2024 Housing Stability Answer Date Recorded What is your housing situation today? I have nish bell 11/15/[address] you li ve. Do you have problems with any of the following? None of the above 11/15/2024 Food Insecurity Answer Date Recorded Within the past 12 months, y ou worried that your food would run out before you got money to buy more: Never True 11/15/2024 Within the past 12 months,th e food you bought just didn't last and you didn't have enough money to get more: Never True 08/2024 Transportation Answer Date Recorded In the past 12 months, has l ack of transportation kept you from medical appts, meetings, work or from getting things needed for daily living? No 11/15/2024 Utilities Answer Date Recorded In the past 12 months, has t he electric, gas, oil or water company threatened to shut off services in your home? No 11/15/2024 Depression Answer Date Recorded Patient Health Questionnaire-2 Score 1 11/22/2024 Internet Access Answer Date Recorded Internet Access Q1 Yes 11/15/2024 Internet Access Q2 Not on file 11/15/2024 Comments No Sex and Gender Information Value Date Recorded Sex Assigned at Female 04/14/2022 10:19 AM EDT Legal Sex Female 10:19 AM EDT Gender Identity Female 04/14/2022 10:19 AM EDT Sexual Orientation Straight 04/14/2022 10 :19 AM EDT documented as of this encounter Miscellaneous Notes * Telephone Encounter - Terra Lilly [place] - 03/02/2025 9:27 AM EDT I informed the patient, that an order for MMR titers was sent to the [facility] lab. She stated that she will have them done this afternoon. There is a Family Rake Operator Medical Form, that needs to be completed. documented in this encounter Plan of Treatment Upcoming Encounters Date Type Department Care Team (Late st Contact Info) Description 03/24/2025 11:00 AM EDT Office Visit [facility] [address] [place] [id number] Solomon Ramos MD [address] [place], [place] [phone] documented as of this encounter Visit Diagnoses Not on filedocumented in this encounter Additional Health Concerns Assessment Noted Time PHQ-9 Depression Total Score: 5 11/23/19 25 3:00 PM EDT documented as of this encounter Care Teams Digital Artist Relationship Specialty Start Date End Date Guilherme Rahman MD [address] [place] [address] PCP - General Internal Medicine 01/12/20 documented as of this encounter
--- OUTSIDE RECORDS SUMMARY | 2025-03-07 18:10 | XMS_ITS | Encounter Summary ---
Author Organization [employer] Address [address] [facility] [address] [place] [address] Care Team Providers Care Soaking Pits Supervisor Name Role Phone Guilherme Rahman MD Primary Care Provide r Reason for Visit * Reason Comments Med Refill Encounter Details Date Type Department Care Team ([facility] st Contact Info) Description 09/28/2024 Refill [facility] [address] [place], [place] [phone] Solomon Ramos MD [address] [place] [address] Kate Social History Tobacco Use Types Packs/Day Years Used Date Smoking Tobacco: Never Passive Smoke Exposure: Never Smokeless Tobacco: Never Alcohol Use Standard Drinks/Week Comments Not Currently 0 (1 standard drink = 0.6 oz pur e alcohol) Depression Answer Date Recorded Patient Health Questionnaire-9 Score 1 07/07/2023 Patient Health Questionnaire-9 Score 1 07/07/2023 Last PHQ-9: Questionnaire Data Not on file 0 07/07/2023 Housing Stability Answer Date Recorded What is your housing situation today? I have nish bell 03/30/[address] you li ve. Do you have problems with any of the following? None of the above 03/30/2023 Food Insecurity Answer Date Recorded Within the past 12 months, y ou worried that your food would run out before you got money to buy more: Never True 03/30/2023 Within the past 12 months,th e food you bought just didn't last and you didn't have enough money to get more: Never True Transportation Answer Date Recorded In the past 12 months, has l ack of transportation kept you from medical appts, meetings, work or from getting things needed for daily living? No 03/30/2023 Utilities Answer Date Recorded In the past 12 months, has t he electric, gas, oil or water company threatened to shut off services in your home? No 03/30/2023 Depression Answer Date Recorded Patient Health Questionnaire-2 Score 0 07/07/2023 Comments No Sex and Gender Information Value Date Recorded Sex Assigned at Female 04/14/2022 10:19 AM EDT Legal Sex Female 10:19 AM EDT Gender Identity Female 04/14/2022 10:19 AM EDT Sexual Orientation Straight 04/14/2022 10 :19 AM EDT documented as of this encounter Plan of Treatment Upcoming Encounters Date Type Department Care Team (Late st Contact Info) Description 03/24/2025 11:00 AM EDT Office Visit [facility] [address] [place] [address] Solomon Ramos MD [address] [place] [address] documented as of this encounter Visit Diagnoses Diagnosis Rosacea documented in this encounter Additional Health Concerns Assessment Noted Time PHQ-9 Depression Total Score: 1 07/07/19 24 11:25 AM EST documented as of this encounter Care Teams Soaking Pits Supervisor Relationship Specialty Start Date End Date Guilherme Rahman MD [address] [place] [id number] PCP - General Internal Medicine 01/12/20 documented as of this encounter
--- OUTSIDE RECORDS SUMMARY | 2025-03-07 18:10 | XMS_ITS | Clinical Summary ---
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 clonazePAM (KlonoPIN) 0.5 MG tablet TAKE 1 TABLET BY MOUTH EVERY DAY 7 tablet 01/28/20 24 Active ibuprofen 600 MG tablet Take 1 tablet (600 mg) by mouth every 6 (six) hours if needed for mild pain for up to 20 doses. 20 tablet 03/08/20 24 Active Additional Information Patient not taking.Reported on 11/22/2024 losartan (Cozaar) 50 MG tabletIndicatio ns:Essential hypertension TAKE 1 TABLET BY MOUTH EVERY DAY 90 tablet 1 08/24/19 25 Active hydroquinone 4 % creamIndication s:Melasma APPLY TOPICALLY TWICE DAILY 28.35 g 1 10/08/19 25 Active PARoxetine (Paxil) 20 MG tabletIndicatio ns:Reactive depression TAKE 1 TABLET BY MOUTH EVERY DAY 30 tablet 3 11/11/19 25 Active metroNIDAZOLE (Metrogel) 0.75 % gelIndications: Rosacea Apply topically 2 times daily. 45 g 1 01/20/20 25 Active D3-1000 25 MCG (1000 UT) capsuleIndicati ons:Low vitamin D level TAKE 1 CAPSULE BY MOUTH EVERY DAY 90 capsule 1 02/24/20 25 Active cholecalciferol (Vitamin D-3) 25 MCG (1000 UT) capsuleIndicati ons:Low vitamin D level Take 1 capsule (25 mcg) by mouth Once per day. 30 capsule 3 12/03/19 25 025 Discontinued Active Problems Problem Noted Date Diagnosed Date Fatigue 11/22/2024 Assessment & Plan (11/22/2024 3:20 PM EDT): Pt c/o feeling tired all the time Exam within normal limits Plan: CMP, CBC, TSH, Vitamin D Temporomandibular lnhhg-mecx-qstwjlbslub syndrom e (TMJ) 03/08/2024 Routine physical examination 11/17/2023 Assessment & Plan (11/22/2024 2:57 PM EDT): Patient here for a routine physical exam Physical exam today was within normal limits Assessment & Plan (11/17/2023 1:58 PM EDT): Patient here for a routine physical exam Physical exam today aside from elevated blood pressure was otherwise within normal limits Current mild episode of jax r depressive disorder without prior episode 12/25/2022 Breast tenderness in female 11/13/2022 Assessment & Plan (11/13/2022 9:29 AM EDT): On a previous visit, ptt told me that since 2008 she feels like she has a small lump on her left breast, this was previously evaluated with an U/S first in 2008 and one in 2011. Pt performed a self examination and felt it was slightly bigger. Repeat U/S and Mammogram 02/08/2021 were negative Pt insisted she has a palpable lump on her left breast, I was unable to located on my previous exam, she was tender to palpation over her anterior breaset around 12 o'clock She was referred to [facility], It appears she did not go. Will repeat her Mammogram Melasma 11/13/2022 Assessment & Plan (11/17/2023 1:59 PM EDT): Uses Hydroquinone 4% cream apply twice daily x 4 months, with no good results Will refer to [facility]erm clinic Assessment & Plan (07/07/2023 11:37 AM EST): Uses Hydroquinone 4% cream apply twice daily x 4 months Assessment & Plan (11/13/2022 9:47 AM EDT): On exam Plan: Hydroquinone 4% cream apply twice daily x 4months Reactive depression 11/13/2022 Assessment & Plan (07/07/2023 11:32 AM EST): Pt with previous c/o feeling depressed, anxious, she stopped seeing her psychotherapist because she felt she was doing ok, She is taking her Medications with good results. Last visit she was referred to our [facility] clinician and she was referred for outside services but it appears pt did not followed up today she states shaw feels this is no longer a problem Assessment & Plan (11/13/2022 10:04 AM EDT): Pt here with c/o feeling depressed, anxious, significantly enough that is affecting her daily life. She feels always tired, does not want to get out of bed, feels sad and anxious, had stopped seeing her psychotherapist because she felt she was doing ok, but feels like she needs help again. She is taking her Medications but is not helping anymore. This is affecting her work , she is being absent constantly and is worried about her financial situation as a result Plan: Will refer to our [facility] clinician. Will also benefit from Psycho[harmacology clinic to adjust her medications. I have given her an excuse for work until Thursday Enlarged thyroid 11/13/2022 Assessment & Plan (11/17/2023 1:24 PM EDT): Thyroid US showed mild thyroiditis, last TSH was normal 07/07/2023 Assessment & Plan (07/07/2023 11:34 AM EST): Thyroid US showed mild thyroiditis, last TSH was normal will repeat Assessment & Plan (11/13/2022 10:06 AM EDT): Pt tells me she is schedule for a thyroid US late this month, previous TSH normal Preventative health care 10/14/2022 Assessment & Plan (11/22/2024 2:59 PM EDT): Mammogram: 01/19/2024 Normal Pap Smear: 10/26/2017 with co testing, repeat 11/23/2023 was negative done by Nat colmenares CNM Colonoscopy: Not age appropriate Assessment & Plan (11/17/2023 1:24 PM EDT): Mammogram: 01/16/2023 Normal Pap Smear: 10/26/2017 with co testing due 2022. referred to Nat colmenares CNM she no showed Colonoscopy: Not age appropriate Assessment & Plan (07/07/2023 11:34 AM EST): Mammogram: 01/16/2023 Normal Pap Smear: 10/26/2017 with co testing due 2022. referred to Nat colmenares CNM but not done yet Colonoscopy: Not age appropriate Assessment & Plan (11/13/2022 10:07 AM EDT): Mammogram: 02/09/2020 Normal Pap Smear: 10/26/2017 with co testing due 2022. Will refer to Nat colmenares CNM Colonoscopy: Not age appropriate Essential hypertension 08/01/2020 Assessment & Plan (11/22/2024 3:12 PM EDT): Patient is here for a follow up She has Hypertension currently controlled on a regimen of: Losartan 50 mg po daily. Pt is off hctz (she stopped taking it for no specific reason ) Most recent electrolytes, Bun and Creatinine done on: Lab Results Component Value Date NA 139 11/23/2023 NA 139 07/07/2023 K 4.3 11/23/2023 K 4.0 07/07/2023 CL 104 11/23/2023 CL 102 07/07/2023 BUN 9 11/23/2023 BUN 12 07/07/2023 CREATININE 0.80 11/23/2023 CREATININE 0.83 07/07/2023 were within normal limits. Will repeat Plan: continue current regimen Patient advised to adhere to a low sodium diet, encouraged about medication compliance, counseled about weight loss. Assessment & Plan (11/17/2023 1:56 PM EDT): Patient is here for a follow up She has Hypertension currently uncontrolled on a regimen of: Losartan 25 mg po daily. Pt is off hctz (she stopped taking it for no specific reason ) Plan: Increase Losartan to 50 mg po daily Most recent electrolytes, Bun and Creatinine done on: 11/13/2022 were within normal limits. Will repeat Patient advised to adhere to a low sodium diet, encouraged about medication compliance, counseled about weight loss. Assessment & Plan (07/07/2023 11:23 AM EST): Patient is here for a follow up She has Hypertension currently controlled on a regimen of: Losartan 25 mg po daily. Pt is off hctz (she stopped taking it for no specific reason ) Given adequate blood pressure control will continue with current medical regimen. Most recent electrolytes, Bun and Creatinine done on: 11/13/2022 were within normal limits. Patient advised to adhere to a low sodium diet, encouraged about medication compliance, counseled about weight loss. Assessment & Plan (11/13/2022 9:24 AM EDT): Patient is here for a follow up She has Hypertension currently controlled on a regimen of: Losartan 25 mg po daily. Pt is off hctz (she stopped taking it for no specific reason ) Given adequate blood pressure control will continue with current medical regimen. Most recent electrolytes, Bun and Creatinine done on: 07/25/2020 were within normal limits. Will repeat patient advised to adhere to a low sodium diet, encouraged about medication compliance, counseled about weight loss. Chronic constipation 07/09/2018 Panic disorder without agoraphobia 11/11/2011 Allergic rhinitis 10/30/2011 Gastroesophageal reflux disease 10/30/2011 Anxiety state 10/30/2011 Assessment & Plan (11/13/2022 9:46 AM EDT): Pt here for a f/u regarding her anxiety She is on Paxil 20 mg po daily and Clonazepam 0.5 mg PRN only She claims the Paxil has helped her anxiety now less frequent panic attacks, but she developed decrease libido she is using the clonazepam approx every other day She is no longer receiving psychotherapy at [facility]. Previously we referred her to our psychopharm clinic for evaluation of a different medication to help with her anxiety and panic attacks and that has no effect on her libido. She is affraid to change medications since this one has been so effective. It appears she was not seen Resolved Problems Problem Noted Date Diagnosed Date Resolved Date Concern about female breast disease without diagnosis 10/14/2022 11/13/2022 Assessment & Plan (12/25/2022 1:48 PM EDT): Patient presents with crying spells, depressed mood, oversleeping, difficulty concentrating, irritability (at work only), anhedonia, fatigued, indecisiveness and low-self concept for about a month and further exacerbated this week. Pauline reports that sxs have made it extremely difficult to work, take care of her home and get along with others. She reported main stressor being her work environment and this past week the of a family member in a MVA. Patient could benefit from OP services for individual therapy. Referral will be placed for services. Encounters Date Type Department Care Team Description 03/02/2025 Telephone [facility] [address] [place] [address] [phone] Guilherme Rahman MD MMR Titers (I informed the patient, that an order for MMR titers was sent to the [facility] lab. She stated that she will have them done this afternoon. There is a Family Rectification Printer Medical Form, that needs to be completed.) 03/01/2025 Telephone [facility] [address], [place] [phone] Miriam Peñaloza RN Immunizations 02/23/2025 Refill [facility] [address] [place] [address] Guilherme Rahman MD Low vitamin D level 01/19/2025 Refill [facility] [address], [place] [phone] Guilherme Rahman MD Rosacea 12/09/2024 Telephone [facility] [address] [place] [phone] Nat Loyola CNM chart prep from Last 3 Months Immunizations Immunization Administration Dates Next Due Hep B, adult 07/06/2008,01/20/2008,12/20/2007 TD (adult), 2 Lf tetanus tox oid, preservative free, adsorbed 12/20/2007 Varicella 10/11/2009,12/20/2007 Social History Tobacco Use Types Packs/Day Years [...] is your housing situation today? I have nishtrice bell 11/15/[address] you [...] Orientation Straight 04/14/2022 10 :19 AM EDT Last Filed Vital Signs Vital Sign Reading Time Taken Comments Blood Pressure 116/78 11/25/2024 10:34 AM EDT Pulse 76 11/25/2024 10:34 AM EDT Temperature 36.6 C (97.8 F) 11/25/2024 10:34 AM EDT Respiratory Rate 18 11/25/2024 10:34 AM EDT Oxygen Saturation 98% 11/17/2023 1:14 PM EDT Inhaled Oxygen Concentration - - Weight 62.9 kg (138 lb 9.6 oz) 11/25/2024 10:34 AM EDT Height 156.3 cm (5' 1.52 ) 11/25/2024 10:34 AM E DT Body Mass Index 25.75 11/25/2024 10:34 AM EDT Plan of Treatment Upcoming Encounters Date Type Department Care Team (Late st Contact Info) Description 03/24/2025 11:00 AM EDT Office Visit [facility] [address], [place] [phone] Solomon Ramos MD [address] [place], [place] [phone] Health Maintenance Due Date Last Done Comments Family Planning (PISQ) 1995 HPV Vaccines (1 - 3-dose series) 1995 DTaP/Tdap/Td Vaccines (1 - Tdap) 12/21/2007 12/20/2007 Dental Oral Exam 03/29/2023 09/26/2022 Dental Prophylaxis 03/29/2023 09/26/2022 Dental X-Ray: Bitewings 09/28/2023 09/26/2022 Mammogram 01/18/2025 01/19/2024, 08/0 09/2022, 01/16/2023, Additional history exists COVID-19 Vaccine (2 - season) 2025 03/05/2021 Influenza Vaccine (#1) 2025 SDOH Screening 11/15/2025 11/15/2024 Alcohol/Substance Use Screening 11/22/2025 11/22/2024 Depression Screening 11/22/2025 11/22/2024, 11/23/19 Disability Screening 11/22/2025 11/22/2024 Tobacco Screening 11/22/2025 11/22/2024 Lipid Panel 05/03/2026 05/03/2021 Dental X-Ray: Full Mouth 03/09/2027 03/08/2024, 09/13 Cervical Cancer Screening 11/22/2028 HPV/Cotest 11/22/2028 11/23/2023 Pap Smear 11/22/2028 11/23/2023 Zoster Vaccines (1 of 2) 2030 RSV Patients and Patients Aged 60 years or older (1 - 1-dose 75+ series) 2055 Hepatitis B Vaccines Completed 07/06/2008, 01/20/2008, 12/20/2007 HIV Screening Completed 11/13/2022 Hepatitis C Screening Completed 11/13/2022 HIB Vaccines Aged Out No longer eligi ble based on patient's age to complete this topic Hepatitis A Vaccines Aged Out No long er eligible based on patient's age to complete this topic IPV Vaccines Aged Out No longer eligi ble based on patient's age to complete this topic Meningococcal B Vaccine Aged Out No l onger eligible based on patient's age to complete this topic Meningococcal Vaccine Aged Out No osmani jennifer eligible based on patient's age to complete this topic Pneumococcal Vaccine: Pediatrics (0 to 5 Years) and At-Risk Patients (6 to 49) Years Aged Out No longer eligible based on patient's age to complete this topic RSV under 20 months Aged Out No longe r eligible based on patient's age to complete this topic Rotavirus Vaccines Aged Out No longer eligible based on patient's age to complete this topic Procedures Procedure Name Priority Date/Time Associated Diagnosis Comments PANORAMIC RADIOGRAPHIC IMAGE Routine 03/08/2024 2:00 PM EDT BI MAMMOGRAM SCREENING TOMOSYNTHESIS BILATERAL Routine 01/19/2024 11:36 AM EDT HPV MRNA E6/E7 REFLEX TO HPV 16, 18/45 Routine 11/23/2023 10:50 AM EDT PAP SMEAR Routine 11/23/2023 10:50 AM EDT HEPATITIS C AB W/REFL TO HCV RNA, QN, PCR Routine 11/13/2022 10:45 AM EDT Preventative health care HIV 1/2 ANTIGEN/ANTIBODY, FOURTH GENERATION W/RFL Routine 11/13/2022 10:45 AM EDT Preventative health care PROPHYLAXIS - ADULT Routine 09/26/2022 9 :00 AM EDT Encounter for dental examination Dental caries Periodontal disease Chronic periodontitis Teeth missing History of dental religion Excessive dental attrition Pigmentation of gingiva INTRAORAL - COMPLETE SERIES OF RADIOGRAPHIC IMAGES Routine 09/26/2022 9:00 AM EDT Encounter for dental examination Dental caries Periodontal disease Chronic periodontitis Teeth missing History of dental religion Excessive dental attrition Pigmentation of gingiva COMPREHENSIVE ORAL EVALUATION - NEW OR ESTABLISHED PATIENT Routine 09/26/2022 9:00 AM EDT Encounter for dental examination Dental caries Periodontal disease Chronic periodontitis Teeth missing History of dental religion Excessive dental attrition Pigmentation of gingiva LIPID PANEL, STANDARD Routine 05/03/2021 8:47 AM EST from Last 3 Months or Most Recently Relevant to Health Maintenance Results * BI Mammogram Screening Tomosynthesis Bilateral (01/19/2024 11:36 AM EDT) Anatomical Region Laterality Modality Breast Bilateral Mammography 01/19/2024 11:3 6 AM EDT Narrative 01/19/2024 2:43 PM EDT [facility] [address] [place] [address] Mammography Report Signed Patient: Pauline Mike MR#: [id number] : 1980 Acct:[id number] Age/Sex: 43 / F ADM Date: 01/19/24 Loc: HO.MAMMO Attending Dr: Guilherme Thomas MD Ordering Physician: Guilherme Thomas MD Resu lts: 1Negative Date of Service: 01/19/24 Follow Up: 1 Year From [facility] Mammogram Procedure(s): MM tomosynthesis screening BI Accession Number(s): [id number] cc: Guilherme Thomas MD EXAMINATION: MM SCREENING DIGITAL BREAST TOMOSYNTHESIS, BILATERAL CLINICAL INFORMATION: Screening. Asymptomatic. COMPARISON: Mammography: This study is compared with prior exams dating back to 2019. TECHNIQUE: Digital breast tomosynthesis is performed in both the craniocaudal and mediolateral oblique views along with computer-aided detection (CAD). Synthesized 2D images are generated from the tomosynthesis. FINDINGS: The breasts are heterogeneously dense, which may obscure small masses (ACR BI-RADS breast composition Category c). There are no significant masses, abnormal calcifications, or other abnormalities. MM/MM tomosynthesis screening BI IMPRESSION: No mammographic evidence of malignancy. ASSESSMENT: BI-RADS BI-RADS 1 - Negative RECOMMENDATION: Routine annual mammography screening. 1 year F/U This examination should not preclude the clinical evaluation of a suspicious palpable abnormality. This patient's information was entered into a reminder system with a target due date for their next mammogram. Dictated By: Mei Santiago MD Signed By: <Electronically signed by Mei Santiago MD in OV> 01/19/24 1439 DD/ 1136 TD/TT: Prepress Operator: Procedure Note Donotuseinterpreter, Image - 01/19/2024 [facility] [address] [place] [address] Mammography Report Signed Patient: Pauline MikeMR#: [id number] 271 : 1980Acct:[id number] Age/Sex: 43 / FADM Date: 01/19/24 Loc: HO.MAMMO Attending Dr: Guilherme Thomas MD Ordering Physician: Guilherme Thomas MDResu lts: 1Negative Date of Service: 01/19/24Follow Up: 1 Year From Orig ina Mammogram Procedure(s): MM tomosynthesis screening BI Accession Number(s): [id number] cc: Guilherme Thomas MD EXAMINATION: MM SCREENING DIGITAL BREAST TOMOSYNTHESIS, BILATERAL CLINICAL INFORMATION: Screening. Asymptomatic. COMPARISON: Mammography: This study is compared with prior exams dating back to 2019. TECHNIQUE: Digital breast tomosynthesis is performed in both the craniocaudal and mediolateral oblique views along with computer-aided detection (CAD). Synthesized 2D images are generated from the tomosynthesis. FINDINGS: The breasts are heterogeneously dense, which may obscure small masses (ACR BI-RADS breast composition Category c). There are no significant masses, abnormal calcifications, or other abnormalities. MM/MM tomosynthesis screening BI IMPRESSION: No mammographic evidence of malignancy. ASSESSMENT: BI-RADS BI-RADS 1 - Negative RECOMMENDATION: Routine annual mammography screening. 1 year F/U This examination should not preclude the clinical evaluation of a suspicious palpable abnormality. This patient's information was entered into a reminder system with a target due date for their next mammogram. Dictated By: Mei Santiago MD Signed By: <Electronically signed by Mei Santiago MD in OV> 01/19/24 1439 DD/ 1136 TD/TT: Prepress Operator: Guilherme Oscar MD IMG BI PROCEDURES Fin al Result * HPV mRNA E6/E7 w/Reflex to HPV Genotypes 16, 18/45 (11/23/2023 10:50 AM EDT) HPV nRNA E6/E7 Not Detected Not Detected [facility] Comment:Methodology: Transcr iption-Mediated AmplificationThis assay detects E6/E7 viral messenger RNA (mRNA) from 14high-risk HPV types (16,18,31,33,35,39,45,51,52,56,58,59,66,68).Cervical sources are required for HPV testing.If a vaginal source from a patient who has had atotal hysterectomy with removal of cervix wassubmitted, please contact the testing laboratoryfor alternative testing options.For additional information, please refer tohttp://education.Pro V&V/faq/VKN419t2(This link if provided for information/educational purposes only.)THIS TEST WAS PERFORMED AT:[address] [place] [id number] PADILLA MD HPV mRNA E6/E7 [facility] HPV 16 RNA [facility] HPV 18/45 RNA [facility] 11/23/2023 10:5 0 AM EDT 11/25/2023 1:01 PM EDT Guilherme Oscar MD LAB CYTOLOGY ORDERABL ES Final Result [facility] [address] [place] [address] [phone] * Pap Smear (11/23/2023 10:50 AM EDT) 11/23/2023 10:5 0 AM EDT 11/24/2023 6:15 AM EDT Edmund [facility] - 12/13/2023 3:48 PM EDT ----- ------- Name: Pauline Mike Age/Sex: 43/F : 1980 Unit#: [id number] Attend Dr: Guilherme Thomas MD Re11/23/23 Status: DEP REF Location: [facility] Disch: ----- ------- SPEC : [id number] RECD: 11/24/23 STATUS: BRUNA ALDANA NUM: [id number] KHALIF: 11/23/23-10[address] [facility] DR: NAT LOYOLA CNM ENTERED: 11/24/23 SP TYPE: Pap Smr OT DR: ORDERED: Pap Smear Interpretation Satisfactory for evaluation. Negative for intraepithelial lesion or malignancy. HPV mRNA E6/E7: NOT DETECTED This assay detects E6/E7 viral messenger RNA (mRNA) from 14 high-risk HPV types (16, 18, 31, 33, 35, 39, 45, 51, 52, 56, 58, 59, 66, 68) HPV testing performed by [facility], [place], [place]. See reference laboratory portion of the EMR for entire report. Clinical Information LMP:11/02/23 Previous PAP test:Unk Material Received ThinPrep-Vaginal/Cervical ----- ------- Signed (signature on file) Nena Jones 12/13/23 1548 ----- ------- END OF REPORT Nat Damian [facility] CYTOLOGY ORDERABLES F inal Result [facility] [address] [place] [phone] * Hepatitis C Antibody with Reflex to HCV, RNA, Quantitative, Real-Time PCR (11/13/2022 10:45 AM EDT) Hepatitis C Antibody NON-REACT TIM NON-REACT TIM [facility] [place] [facility] Index 0.04 <1.00 [facility] Comment: HCV antibody was non-reactive. There is no laboratory evidence of HCV infection. In most cases, no further action is required. However, if recent HCV exposure is suspected, a test for HCV RNA (test code 35503) is suggested. For additional information please refer to http://education.Pro V&V/faq/WNE50b7 (This link is being provided for informational/ educational purposes only.) Blood Venous blood specimen / Unknown 11/13/2022 10:45 AM EDT 11/13/2022 10:46 AM EDT Narrative [facility] - 11/13/2022 9:24 PM EDT FASTING:NO FASTING: NO Guilherme Oscar MD LAB BLOOD ORDERABLES Final Result [facility] [address], [place] [address] [facility] [place] [employer] [address] [place] [address] * HIV-1/2 Antigen and Antibodies, Fourth Generation, with Reflexes (11/13/2022 10:45 AM EDT) HIV Antigen/Antibody, 4th Generation NON-REAC TIVE NON-REAC TIVE [facility] Comment: HIV-1 antigen and HIV-1/HIV-2 antibodies were not detected. There is no laboratory evidence of HIV infection. PLEASE NOTE: This information has been disclosed to you from records whose confidentiality may be protected by state law. If your state requires such protection, then the state law prohibits you from making any further disclosure of the information without the specific written consent of the person to whom it pertains, or as otherwise permitted by law. A general authorization for the release of medical or other information is NOT sufficient for this purpose. For additional information please refer to http://education.[employer].vocaltap/faq/EUN845 (This link is being provided for informational/ educational purposes only.) The performance of this assay has not been clinically validated in patients less than 2 years old. Blood Venous blood specimen / Unknown 11/13/2022 10:45 AM EDT 11/13/2022 10:46 AM EDT Narrative [facility] - 11/13/2022 9:24 PM EDT FASTING:NO FASTING: NO Guilherme Oscar MD LAB BLOOD ORDERABLES Final Result [facility] [address], [place] [address] [facility] [address] [place] [address] * LIPID PANEL, STANDARD (05/03/2021 8:47 AM EST) Chol/HDLC Ratio 2.3 <5.0 (calc) [facility] Cholesterol, Total 133 <200 mg/dL [facility] HDL Cholesterol 57 > OR = 50 mg/dL [facility] LDL Cholesterol 63 mg/dL (calc) [facility] Comment: Reference range: <100 Desirable range <100 mg/dL for primary prevention; <70 mg/dL for patients with CHD or diabetic patients with > or = 2 CHD risk factors. LDL-C is now calculated using the Andres calculation, which is a validated novel method providing better accuracy than the Friedewald equation in the estimation of LDL-C. Benjamín SS et al. KATLIN. 2013;310(19): [id number] (http://education.[employer]/faq/KPD457) Non-HDL Cholesterol 76 <130 mg/dL (calc) [facility] Comment: For patients with diabetes plus 1 major ASCVD risk factor, treating to a non-HDL-C goal of <100 mg/dL (LDL-C of <70 mg/dL) is considered a therapeutic option. Triglycerides 51 <150 mg/dL [facility] 05/03/2021 8:47 AM EST us Guilherme Oscar MD LAB BLOOD ORDERABLES Final Result [facility] [address] from Last 3 Months or Most Recently Relevant to Health Maintenance [facility] MEDICAID STAND ADULT DENTAL - CIG DENTAL PPO Care Teams [employer] Relationship Specialty Start Date End Date Guilherme Rahman MD [address] [place] [id number] PCP - General Internal Medicine 01/12/20
[2025-03-08 09:34] LABS: Rubeola IgG (Measles) 47.40 AU/mL
== END 2025-03-07 15:14 | disposition home or self-care (01) ==
LOC: HO.HHCL 15:13
PROVIDERS: PCP Internal Medicine; Visit Provider Internal Medicine
DX: Z01.84 Encounter for antibody response examination (principal)
CPT/HCPCS: 36415; 86735; 86762; 86765